=== PATIENT | female | born 1975 | race African-American/Black ===

== ENCOUNTER 2016-08-21 04:46 | Emergency (ER) | payer MEDICAID ==
[~2016-08-21] VITALS: Ht 160 cm; Wt 82.0 kg
[~2016-08-21 04:46] MED LIST: PHENERGAN; PROAIR; ZPACK
[2016-08-21] MEDS ORDERED: SODIUM CHLORIDE 0.9% 1,000 ML IV ONE (06:04)
[2016-08-21] MEDS ORDERED: FAMOTIDINE 20MG/2ML VIAL IV STA (06:04)
[2016-08-21] MEDS ORDERED: ONDANSETRON HCL 4MG/2ML VIAL IV STA (06:04)
[2016-08-21 06:21] LABS: BASOPHILS % 1.4 % (0.0-2.0); EOSINOPHILS % 6.1 % (0.0-5.0); HEMATOCRIT. 39.7 % (36.0-48.0); HEMOGLOBIN. 13.2 g/dL (12.0-16.0); LYMPHOCYTES % 33.6 % (20.0-50.0); MEAN CORPUSCULAR HEMOGLOBIN 30.8 pg (28.0-32.0); MEAN CORPUSCULAR HGB CONC 33.3 g/dL (31.0-37.0); MEAN CORPUSCULAR VOLUME 92.7 fL (81.0-99.0); MEAN PLATELET VOLUME 8.6 fl (7.4-10.4); MONOCYTES % 8.7 % (2.0-8.0); NEUTROPHILS % 50.2 % (40.0-76.0); PLATELET 201 x1000/uL (130-400); RED BLOOD CELL COUNT 4.28 mill/uL (4.2-5.4); RED CELL DISTRIBUTION WIDTH 13.2 % (11.6-14.6); WHITE BLOOD COUNT 7.8 x1000/uL (4.5-11.0)
[2016-08-21 06:27] LABS: CHLORIDE 108 mEq/L (98-107); INDEX HEMOLYSI 1 (1-3); INDEX ICTERIC 1 (1-4); INDEX LIPEMIC 1 (1-3)
[2016-08-21 06:31] LABS: ALBUMIN 3.2 g/dL (3.4-5.0); ANION GAP 10; CALCIUM 8.4 mg/dL (8.5-10.1); CARBON DIOXIDE 27 mEq/L (21-32); ETHANOL BLOOD < 10 mg/dL; LIPASE 150 IU/L (73-393); UREA NITROGEN BLOOD 15 mg/dL (7-21)
[2016-08-21 06:36] LABS: ALANINE AMINOTRANSFERASE 14 IU/L (13-61); eGFR > 60 mL/min (>60)
[2016-08-21 06:38] LABS: NT PRO B-TYPE NATRIURETIC PEP 42 pg/mL (5-125); TROPONIN I < 0.02 ng/mL (0.00-0.04)
[2016-08-21 07:05] LABS: CLARITY URINE CLOUDY (CLEAR); COLOR URINE YELLOW (YELLOW); GLUCOSE URINE NEGATIVE (NEGATIVE); KETONES URINE NEGATIVE (NEGATIVE); LEUKOCYTE ESTERASE URINE NEGATIVE (NEGATIVE); NITRITE URINE NEGATIVE (NEGATIVE); OCCULT BLOOD URINE NEGATIVE (NEGATIVE); PROTEIN URINE NEGATIVE (NEGATIVE); SPECIFIC GRAVITY URINE 1.025 (1.005-1.030)
[2016-08-21 07:07] LABS: BACTERIA URINE NONE SEEN; CALCIUM PHOSPHATE CRYSTALS UR NONE SEEN /lpf; SQUAMOUS EPITHELIAL CELL URINE 1+ /lpf (RARE/1+); WAXY CASTS URINE NONE SEEN /lpf; WBC URINE 0-2 /hpf (0-2); YEAST URINE NONE SEEN
[2016-08-21 07:11] LABS: *AMPHETAMINES SCREEN URINE NEGATIVE (NEGATIVE); *BARBITURATES SCREEN URINE NEGATIVE (NEGATIVE); *BENZODIAZEPINES SCREEN URINE NEGATIVE (NEGATIVE); *COCAINE SCREEN URINE NEGATIVE (NEGATIVE); CANNABINOID URINE SCREEN PRESUMTIVE POSITIVE (NEGATIVE); ECSTASY MDMA SCREEN URINE NEGATIVE (NEGATIVE); METHADONE URINE SCREEN NEGATIVE (NEGATIVE); OPIATES URINE SCREEN PRESUMTIVE POSITIVE (NEGATIVE); PHENCYCLIDINE URINE SCREEN NEGATIVE (NEGATIVE)
[2016-08-21 07:11] LABS: PROTHROMBIN TIME 10.5 sec
[2016-08-21 08:43] VITALS: BP 129/91
[2016-08-21] MEDS ORDERED: IOHEXOL-300 100 ML BOTTLE ONE (13:35)
[2016-08-21] MEDS ORDERED: SODIUM CHLORIDE 0.9% 10ML VIAL ONE (13:35)
== END 2016-08-21 09:46 | disposition home or self-care (01) ==
LOC: ER 04:47
DX: R10.31 Right lower quadrant pain (principal); M19.90 Unspecified osteoarthritis, unspecified site; I10 Essential (primary) hypertension; J45.909 Unspecified asthma, uncomplicated; G43.909 Migraine, unspecified, not intractable, without status migrainosus; F17.201 Nicotine dependence, unspecified, in remission; Z98.890 Other specified postprocedural states; Z88.6 Allergy status to analgesic agent
CPT/HCPCS: 36415; 71010; 74177; 80053; 80305; 81001; 81025; 83690; 83880; 84484; 85025; 85610; 93005; 96361; 96374; 96375; 99285; A4216; G0482; J2405; J3490; J7030; Q9967; Z7610

== ENCOUNTER 2016-11-12 21:05 | Emergency (ER) | payer MEDICAID ==
[~2016-11-12] VITALS: Ht 175.3 cm; Wt 86.0 kg
[~2016-11-12 21:05] MED LIST changes: +IOHEXOL-300 100 ML BOTTLE ONE; +SODIUM CHLORIDE 0.9% 10ML VIAL ONE
[2016-11-12] MEDS ORDERED: ONDANSETRON HCL 4MG/2ML VIAL IV STA (21:45)
[2016-11-12] MEDS ORDERED: SODIUM CHLORIDE 0.9% 1,000 ML IV ONE (21:45)
[2016-11-12] MEDS ORDERED: MORPHINE SULFATE 4 MG/ML CPJ (NOT FOR IM USE) IV STA (21:45)
[2016-11-12] MEDS ORDERED: FAMOTIDINE 20MG/2ML VIAL IV ONE (22:00)
[2016-11-12] MEDS ORDERED: PANTOPRAZOLE SODIUM 40 MG/VIAL IV ONE (22:00)
[2016-11-12 22:43] LABS: BASOPHILS % 0.7 % (0.0-2.0); EOSINOPHILS % 3.6 % (0.0-5.0); HEMATOCRIT. 42.3 % (36.0-48.0); HEMOGLOBIN. 14.2 g/dL (12.0-16.0); LYMPHOCYTES % 19.8 % (20.0-50.0); MEAN CORPUSCULAR HEMOGLOBIN 31.2 pg (28.0-32.0); MEAN CORPUSCULAR VOLUME 92.9 fL (81.0-99.0); MEAN PLATELET VOLUME 9.2 fl (7.4-10.4); MONOCYTES % 8.9 % (2.0-8.0); PLATELET 172 x1000/uL (130-400); RED BLOOD CELL COUNT 4.55 mill/uL (4.2-5.4); RED CELL DISTRIBUTION WIDTH 14.1 % (11.6-14.6)
[2016-11-12 22:50] LABS: HCG SCREEN NEGATIVE; INR 1.1; PROTHROMBIN TIME 11.1 sec
[2016-11-12 22:58] LABS: CARBON DIOXIDE 25 mEq/L (21-32); CHLORIDE 109 mEq/L (98-107)
[2016-11-13 00:39] LABS: CLARITY URINE CLEAR (CLEAR); COLOR URINE YELLOW (YELLOW); GLUCOSE URINE NEGATIVE (NEGATIVE); KETONES URINE NEGATIVE (NEGATIVE); LEUKOCYTE ESTERASE URINE NEGATIVE (NEGATIVE); NITRITE URINE NEGATIVE (NEGATIVE); OCCULT BLOOD URINE NEGATIVE (NEGATIVE); PH URINE 6.5 (4.5-8.0); PROTEIN URINE NEGATIVE (NEGATIVE); SPECIFIC GRAVITY URINE 1.061 (1.005-1.030)
[2016-11-13 01:52] VITALS: BP 114/63
== END 2016-11-13 02:01 | disposition home or self-care (01) ==
LOC: ER 21:47
DX: K29.70 Gastritis, unspecified, without bleeding (principal); I10 Essential (primary) hypertension; F12.10 Cannabis abuse, uncomplicated; F41.9 Anxiety disorder, unspecified; M19.90 Unspecified osteoarthritis, unspecified site; J45.909 Unspecified asthma, uncomplicated; F31.9 Bipolar disorder, unspecified; Z88.6 Allergy status to analgesic agent
CPT/HCPCS: 36415; 74177; 80053; 81003; 83690; 84703; 85025; 85610; 96361; 96374; 96375; 99285; A4216; C9113; J2270; J2405; J3490; J7030; Q9967; Z7610

== ENCOUNTER 2017-06-14 07:07 | Emergency (ER) | payer MEDICAID ==
[~2017-06-14] VITALS: Ht 170.2 cm; Wt 87.0 kg
[~2017-06-14 07:07] MED LIST changes: -IOHEXOL-300 100 ML BOTTLE ONE; -SODIUM CHLORIDE 0.9% 10ML VIAL ONE
[2017-06-14] MEDS ORDERED: METHYLPREDNISOLONE SOD SUCC 125 MG/2 ML VIAL IV STA (09:52)
[2017-06-14] MEDS ORDERED: ALBUTEROL (0.083%) 2.5MG/3ML NEB HHN STA (09:52)
[2017-06-14] MEDS ORDERED: IPRATROPIUM BROMIDE (0.02%) 0.5MG/2.5ML NEB HHN STA (09:52)
[2017-06-14 12:05] VITALS: BP 124/95
== END 2017-06-14 12:05 | disposition home or self-care (01) ==
LOC: ER 07:20
DX: J45.901 Unspecified asthma with (acute) exacerbation (principal); I10 Essential (primary) hypertension; F17.210 Nicotine dependence, cigarettes, uncomplicated; F12.90 Cannabis use, unspecified, uncomplicated; Z88.6 Allergy status to analgesic agent; Z86.59 Personal history of other mental and behavioral disorders; Z98.890 Other specified postprocedural states
CPT/HCPCS: 71045; 94644; 96374; 99285; J2930; J7611

== ENCOUNTER 2017-06-25 20:55 | Emergency (ER) | payer MEDICAID ==
[~2017-06-25] VITALS: Ht 162.6 cm; Wt 86.0 kg
[2017-06-25] MEDS ORDERED: ACETAMINOPHEN WITH CODEINE 300/30MG TABLET PO ONE (23:00)
[2017-06-26 01:05] VITALS: BP 148/88
== END 2017-06-26 01:05 | disposition home or self-care (01) ==
LOC: ER 21:08
DX: S00.03XA Contusion of scalp, initial encounter (principal); M54.2 Cervicalgia; J45.909 Unspecified asthma, uncomplicated; I10 Essential (primary) hypertension; M19.90 Unspecified osteoarthritis, unspecified site; F17.200 Nicotine dependence, unspecified, uncomplicated; Z88.6 Allergy status to analgesic agent; Y04.0XXA Assault by unarmed brawl or fight, initial encounter; Y93.89 Activity, other specified; Y92.89 Other specified places as the place of occurrence of the external cause; Y99.8 Other external cause status
CPT/HCPCS: 70450; 70486; 72125; 81025; 99284

== ENCOUNTER 2017-09-26 04:42 | Emergency (ER) | payer MEDICAID ==
[~2017-09-26] VITALS: Ht 170.2 cm; Wt 82.0 kg
[2017-09-26] MEDS ORDERED: ALBUTEROL (0.083%) 2.5MG/3ML NEB HHN STA (06:22)
[2017-09-26] MEDS ORDERED: PREDNISONE 20MG TABLET PO STA (06:22)
[2017-09-26] MEDS ORDERED: ACETAMINOPHEN 325MG TABLET PO ONE (06:30)
[2017-09-26] MEDS ORDERED: ONDANSETRON HCL 4MG TABLET PO ONE (06:30)
[2017-09-26] MEDS: IPRATROPIUM BROMIDE (0.02%) 0.5MG/2.5ML NEB HHN STA ×2 (06:56→06:59)
[2017-09-26 10:04] VITALS: BP 104/67
== END 2017-09-26 10:05 | disposition home or self-care (01) ==
LOC: ER 04:42
DX: J45.901 Unspecified asthma with (acute) exacerbation (principal); B34.9 Viral infection, unspecified; I10 Essential (primary) hypertension; F12.10 Cannabis abuse, uncomplicated; F17.210 Nicotine dependence, cigarettes, uncomplicated; Z71.6 Tobacco abuse counseling; Z88.6 Allergy status to analgesic agent; Z98.1 Arthrodesis status
CPT/HCPCS: 71045; 94640; 99284; 99406; J7512; J7611; Q0162

== ENCOUNTER 2019-02-22 06:23 | Emergency (ER) | payer MEDICAID ==
[~2019-02-22] VITALS: Ht 170.2 cm; Wt 80.0 kg
[2019-02-22] MEDS ORDERED: MORPHINE SULFATE 4 MG/ML CPJ (NOT FOR IM USE) IV STA (07:10)
[2019-02-22] MEDS ORDERED: SODIUM CHLORIDE 0.9% 1,000 ML IV ONE (07:10)
[2019-02-22 08:13] LABS: BASOPHILS % 0.6 % (0.0-2.0); EOSINOPHILS % 4.3 % (0.0-5.0); HEMATOCRIT. 38.7 % (36.0-48.0); LYMPHOCYTES % 32.1 % (20.0-50.0); MEAN CORPUSCULAR HEMOGLOBIN 31.3 pg (28.0-32.0); MEAN CORPUSCULAR VOLUME 93.5 fL (81.0-99.0); MEAN PLATELET VOLUME 9.3 fl (7.4-10.4); MONOCYTES % 9.3 % (2.0-8.0); NEUTROPHILS % 53.7 % (40.0-76.0); PLATELET 209 x1000/uL (130-400); RED BLOOD CELL COUNT 4.14 mill/uL (4.2-5.4); RED CELL DISTRIBUTION WIDTH 13.6 % (11.6-14.6)
[2019-02-22 08:20] LABS: PROTHROMBIN TIME 10.7 sec (9.6-11.0)
[2019-02-22 08:24] LABS: CHLORIDE 110 mEq/L (98-107)
[2019-02-22 08:38] LABS: CLARITY URINE CLOUDY (CLEAR); COLOR URINE YELLOW (YELLOW); KETONES URINE NEGATIVE (NEGATIVE); LEUKOCYTE ESTERASE URINE NEGATIVE (NEGATIVE); NITRITE URINE NEGATIVE (NEGATIVE); OCCULT BLOOD URINE 3+ (NEGATIVE); PH URINE 6.5 (4.5-8.0); PROTEIN URINE NEGATIVE (NEGATIVE); SPECIFIC GRAVITY URINE 1.022 (1.005-1.030)
[2019-02-22] MEDS ORDERED: ONDANSETRON HCL 4MG/2ML INJ IV NR (09:30)
[2019-02-22 12:15] VITALS: BP 136/69
== END 2019-02-22 12:19 | disposition home or self-care (01) ==
LOC: ER 06:23
DX: R10.0 Acute abdomen (principal); I10 Essential (primary) hypertension; F17.210 Nicotine dependence, cigarettes, uncomplicated; F12.90 Cannabis use, unspecified, uncomplicated
CPT/HCPCS: 36415; 74176; 76830; 76856; 80053; 81003; 81025; 83690; 85025; 85610; 96361; 96374; 96375; 99284; J2270; J2405; J7030

== ENCOUNTER 2019-12-10 19:59 | Emergency (ER) | payer MEDICAID ==
[~2019-12-10] VITALS: Ht 162.6 cm; Wt 73.0 kg
[2019-12-10] MEDS ORDERED: FLUORESCEIN SODIUM 1MG/STRIP RIGHTEYE ONE (20:30)
[2019-12-10] MEDS ORDERED: IBUPROFEN 600MG TABLET PO ONE (20:30)
[2019-12-10] MEDS ORDERED: TETRACAINE 0.5% OPHTH DROPS 4ML RIGHTEYE ONE (20:30)
[2019-12-10 21:47] VITALS: BP 164/100
== END 2019-12-10 21:49 | disposition home or self-care (01) ==
LOC: ER 19:59
DX: S05.01XA Injury of conjunctiva and corneal abrasion without foreign body, right eye, initial encounter (principal); X58.XXXA Exposure to other specified factors, initial encounter; Y93.89 Activity, other specified; Y92.89 Other specified places as the place of occurrence of the external cause; Y99.8 Other external cause status; J45.909 Unspecified asthma, uncomplicated; F12.10 Cannabis abuse, uncomplicated; Z88.6 Allergy status to analgesic agent
CPT/HCPCS: 99283

== ENCOUNTER 2021-11-06 11:07 | Emergency (ER) | payer MEDICAID ==
[~2021-11-06] VITALS: Ht 167.6 cm; Wt 91.0 kg
[2021-11-06 11:12] VITALS: BP 132/94
[2021-11-06] MEDS ORDERED: CEFAZOLIN 1000MG PREMIX 50 ML IV ONE (15:00)
[2021-11-06] MEDS ORDERED: CEFAZOLIN 1000MG PREMIX 50 ML IV NR (15:15)
[2021-11-06 15:54] LABS: BASOPHILS % 0.5 % (0.0-2.0); EOSINOPHILS % 2.7 % (0.0-5.0); HEMATOCRIT. 44.4 % (36.0-48.0); HEMOGLOBIN. 15.6 g/dL (12.0-16.0); LYMPHOCYTES % 22.4 % (20.0-50.0); MEAN CORPUSCULAR HEMOGLOBIN 32.1 pg (28.0-32.0); MEAN CORPUSCULAR VOLUME 91.6 fL (81.0-99.0); MEAN PLATELET VOLUME 9.3 fl (7.4-10.4); MONOCYTES % 6.9 % (2.0-8.0); NEUTROPHILS % 67.5 % (40.0-76.0); PLATELET 195 x1000/uL (130-400); RED BLOOD CELL COUNT 4.85 mill/uL (4.2-5.4); RED CELL DISTRIBUTION WIDTH 15.4 % (11.6-14.6)
[2021-11-06 16:10] LABS: CHLORIDE 106 mEq/L (98-107)
[2021-11-06 16:11] LABS: HCG SCREEN NEGATIVE
[2021-11-06] MEDS ORDERED: IOHEXOL-300 100 ML BOTTLE ONE (17:37)
[2021-11-06] MEDS ORDERED: CEPH500C2 MT (18:43)
== END 2021-11-06 19:02 | disposition home or self-care (01) ==
LOC: ER 11:07
DX: L03.213 Periorbital cellulitis (principal); R21 Rash and other nonspecific skin eruption; I10 Essential (primary) hypertension; J45.909 Unspecified asthma, uncomplicated
CPT/HCPCS: 36415; 70487; 80053; 84703; 85025; 96365; 99285; J0690; Q9967

== ENCOUNTER 2023-07-25 02:04 | Emergency (ER) | payer MEDICAID, OTHER ==
[~2023-07-25] VITALS: Ht 167.6 cm; Wt 77.5 kg
[~2023-07-25 02:04] MED LIST changes: +CEPH500C2 MT
[2023-07-25 02:05] VITALS: O2SAT 96
[2023-07-25 03:16] LABS: BASOPHILS % 1.3 % (0.0-2.0); EOSINOPHILS % 3.7 % (0.0-5.0); HEMATOCRIT. 40.3 % (36.0-48.0); HEMOGLOBIN. 13.7 g/dL (12.0-16.0); LYMPHOCYTES % 27.8 % (20.0-50.0); MEAN CORPUSCULAR HEMOGLOBIN 31.8 pg (28.0-32.0); MEAN CORPUSCULAR HGB CONC 34.1 g/dL (31.0-37.0); MEAN CORPUSCULAR VOLUME 93.4 fL (81.0-99.0); MEAN PLATELET VOLUME 9.3 fl (7.4-10.4); MONOCYTES % 7.3 % (2.0-8.0); NEUTROPHILS % 59.9 % (40.0-76.0); PLATELET 278 x1000/uL (130-400); RED BLOOD CELL COUNT 4.32 mill/uL (4.2-5.4); RED CELL DISTRIBUTION WIDTH 14.5 % (11.6-14.6); WHITE BLOOD COUNT 10.6 x1000/uL (4.5-11.0)
[2023-07-25] MEDS: SODIUM CHLORIDE 0.9% 1,000 ML IV ONE (03:18)
[2023-07-25] MEDS: ONDANSETRON HCL 4MG/2ML INJ IV STA (03:18)
[2023-07-25] MEDS: KETOROLAC 30MG/ML VIAL IV STA (03:18)
[2023-07-25 03:22] LABS: HCG SCREEN NEGATIVE
[2023-07-25 03:27] LABS: ALANINE AMINOTRANSFERASE < 7 IU/L (10-49); ALBUMIN 4.6 g/dL (3.2-4.8); ASPARTATE AMINOTRANSFERASE 12 IU/L (<34); BILIRUBIN TOTAL 0.5 mg/dL (0.1-1.0); CARBON DIOXIDE 25 mEq/L (21-32); CHLORIDE 106 mEq/L (98-107); CREATININE 0.7 mg/dL (0.6-1.0); GLUCOSE 98 mg/dL (70-105); POTASSIUM 3.6 mEq/L (3.5-5.1); PROTEIN TOTAL 7.3 g/dL (6.0-8.3); SODIUM 137 mEq/L (136-145); UREA NITROGEN BLOOD 11 mg/dL (9-23)
[2023-07-25 05:44] LABS: CLARITY URINE CLEAR (CLEAR); COLOR URINE YELLOW (YELLOW); GLUCOSE URINE NEGATIVE (NEGATIVE); KETONES URINE NEGATIVE (NEGATIVE); LEUKOCYTE ESTERASE URINE 1+ (NEGATIVE); NITRITE URINE NEGATIVE (NEGATIVE); OCCULT BLOOD URINE 1+ (NEGATIVE); PROTEIN URINE NEGATIVE (NEGATIVE); SPECIFIC GRAVITY URINE 1.022 (1.005-1.030); UROBILINOGEN URINE 0.2 E.U./dL (0.2-1.0)
[2023-07-25] MEDS ORDERED: NITR-87 MT (05:47)
[2023-07-25] MEDS ORDERED: IBUP-2028 MT (05:47)
[2023-07-25 06:24] VITALS: BP 126/86; PULSE 80; RESP 18; TEMP 98.4
[2023-07-25 07:22] LABS: SQUAMOUS EPITHELIAL CELL URINE FEW /lpf (RARE/1+)
[2023-07-25 07:31] LABS: BACTERIA URINE 1+; RBC URINE 0-2 /hpf (0-2)
== END 2023-07-25 07:03 | disposition home or self-care (01) ==
LOC: ER 02:04
DX: R10.2 Pelvic and perineal pain (principal); R10.31 Right lower quadrant pain; N39.0 Urinary tract infection, site not specified; J45.909 Unspecified asthma, uncomplicated; I10 Essential (primary) hypertension; G43.909 Migraine, unspecified, not intractable, without status migrainosus; Z79.899 Other long term (current) drug therapy
CPT/HCPCS: 99285; 74176; 96374; 96361; 96375; 80053; 81003; 84703; 83605; 83690; 85025; 87086; 87186; 36415; J1885; J2405

== ENCOUNTER 2023-10-19 00:52 | Emergency (ER) | payer OTHER ==
[~2023-10-19] VITALS: Ht 152.4 cm; Wt 80.0 kg
[~2023-10-19 00:52] MED LIST changes: +IBUP-2028 MT; +NITR-87 MT
[2023-10-19 00:55] VITALS: O2SAT 96
[2023-10-19] MEDS ORDERED: OCUFLX EACHEYE (02:20)
[2023-10-19] MEDS: KETOROLAC 15MG/ML VIAL IM ONE (02:23)
[2023-10-19 02:47] VITALS: BP 145/69; PULSE 79; RESP 18; TEMP 97.8
[2023-10-19] MEDS ORDERED: CLIN-194 MT (02:49)
== END 2023-10-19 02:52 | disposition home or self-care (01) ==
LOC: ER 00:52
DX: L03.213 Periorbital cellulitis (principal); J45.909 Unspecified asthma, uncomplicated; I10 Essential (primary) hypertension; G43.909 Migraine, unspecified, not intractable, without status migrainosus; F19.90 Other psychoactive substance use, unspecified, uncomplicated; Z88.8 Allergy status to other drugs, medicaments and biological substances
CPT/HCPCS: 99283; 96372; J1885

== ENCOUNTER 2023-11-29 16:32 | Emergency (ER) | payer OTHER ==
[~2023-11-29] VITALS: Ht 165.1 cm; Wt 82.0 kg
[~2023-11-29 16:32] MED LIST changes: +CLIN-194 MT; +OCUFLX EACHEYE
[2023-11-29 16:47] VITALS: O2SAT 99
[2023-11-29] MEDS ORDERED: TETRACAINE 0.5% OPHTH DROPS 4ML BOTHEYE ONE (17:00)
[2023-11-29] MEDS: TETRACAINE 0.5% OPHTH DROPS 4ML BOTHEYE NR (20:41)
[2023-11-29] MEDS: FLUORESCEIN SODIUM 1MG/STRIP RIGHTEYE ONE (20:41)
[2023-11-29] MEDS ORDERED: DORZOLAMIDE 2% OPHTH 10 ML BOTTLE RIGHTEYE SCH (21:30)
[2023-11-29] MEDS ORDERED: TIMOLOL MALEATE 0.5% OPHTH DROPS 5ML RIGHTEYE SCH (21:30)
[2023-11-29] MEDS ORDERED: ACETAZOLAMIDE 500MG ER CAPSULE PO ONE (21:30)
[2023-11-29] MEDS ORDERED: LATANOPROST 0.005% OPHTH DROPS 2.5ML RIGHTEYE SCH (21:45)
[2023-11-30] VITALS: BP 129/87; PULSE 92; RESP 19; TEMP 98.1
[2023-11-30] MEDS ORDERED: PREDNISOLONE ACETATE 1% OPHTH DROPS 5ML RIGHTEYE SCH
[2023-11-30] MEDS: KETOROLAC 30MG/ML VIAL IM ONE
[2023-11-30] MEDS: HYDROCODONE/ACETAMINOPHEN 5/325MG TABLET PO ONE
[2023-11-30] MEDS ORDERED: CIPROFLOXACIN 0.3% OPHTH SOLN 2.5ML RIGHTEYE SCH (09:00)
== END 2023-11-30 00:30 | disposition short-term general hospital (02) ==
LOC: ER 16:32
DX: H10.9 Unspecified conjunctivitis (principal); J45.909 Unspecified asthma, uncomplicated; I10 Essential (primary) hypertension; G43.909 Migraine, unspecified, not intractable, without status migrainosus; Z79.899 Other long term (current) drug therapy
CPT/HCPCS: 99291; 96372; J1885

== ENCOUNTER 2023-12-04 10:24 | Emergency (ER) | payer OTHER ==
[~2023-12-04] VITALS: Ht 177.8 cm; Wt 81.0 kg
[2023-12-04 10:57] VITALS: PULSE 70; RESP 14; O2SAT 100
[2023-12-04] MEDS: ALBUTEROL (0.083%) 2.5MG/3ML NEB HHN STA (10:57)
[2023-12-04] MEDS: IPRATROPIUM BROMIDE (0.02%) 0.5MG/2.5ML NEB HHN STA (10:57)
[2023-12-04] MEDS: ASPIRIN 81MG TABLET PO ONE (11:02)
[2023-12-04 11:32] LABS: BASOPHILS % 1.1 % (0.0-2.0); EOSINOPHILS % 4.7 % (0.0-5.0); HEMATOCRIT. 39.7 % (36.0-48.0); HEMOGLOBIN. 13.3 g/dL (12.0-16.0); LYMPHOCYTES % 27.3 % (20.0-50.0); MEAN CORPUSCULAR HGB CONC 33.5 g/dL (31.0-37.0); MEAN CORPUSCULAR VOLUME 92.7 fL (81.0-99.0); MEAN PLATELET VOLUME 9.2 fl (7.4-10.4); MONOCYTES % 9.6 % (2.0-8.0); NEUTROPHILS % 57.3 % (40.0-76.0); PLATELET 210 x1000/uL (130-400); RED BLOOD CELL COUNT 4.29 mill/uL (4.2-5.4); RED CELL DISTRIBUTION WIDTH 14.1 % (11.6-14.6); WHITE BLOOD COUNT 6.7 x1000/uL (4.5-11.0)
[2023-12-04 11:38] LABS: CHLORIDE 108 mEq/L (98-107); POTASSIUM 3.8 mEq/L (3.5-5.1); SODIUM 139 mEq/L (136-145)
[2023-12-04 11:39] LABS: CARBON DIOXIDE 26 mEq/L (21-32)
[2023-12-04 11:40] LABS: CALCIUM 9.3 mg/dL (8.7-10.4)
[2023-12-04 11:43] LABS: INR 0.9; PROTHROMBIN TIME 10.6 sec (9.6-11.0)
[2023-12-04 11:44] LABS: CREATININE 0.8 mg/dL (0.6-1.0); GLUCOSE 86 mg/dL (70-105)
[2023-12-04 11:45] LABS: UREA NITROGEN BLOOD 21 mg/dL (9-23)
[2023-12-04 11:56] LABS: TROPONIN I HIGH SENSITIVITY < 4 ng/L (3.0-34)
[2023-12-04 13:34] VITALS: BP 119/88; PULSE 91; RESP 10; TEMP 97.9
[2023-12-04 13:48] LABS: TROPONIN I HIGH SENSITIVITY < 4 ng/L (3.0-34)
== END 2023-12-04 14:08 | disposition short-term general hospital (02) ==
LOC: ER 10:24 → EDBEDREQTM 12:24 → EDBEDREQ 12:24 → CANBEDREQ 14:07 → ER 14:08
DX: R07.9 Chest pain, unspecified (principal); J45.909 Unspecified asthma, uncomplicated; I10 Essential (primary) hypertension; G43.909 Migraine, unspecified, not intractable, without status migrainosus; F19.90 Other psychoactive substance use, unspecified, uncomplicated; Z88.8 Allergy status to other drugs, medicaments and biological substances
CPT/HCPCS: 80048; 83880; 83690; 85025; 85610; 84484; 36415; 71045; 94640; 93005; 99285; Z7610 ×4

== ENCOUNTER 2024-02-14 09:08 | Emergency (ER) | payer OTHER ==
[~2024-02-14] VITALS: Ht 167.6 cm; Wt 60.0 kg
[2024-02-14 09:11] VITALS: O2SAT 99
[2024-02-14] MEDS ORDERED: HYDROCODONE/ACETAMINOPHEN 5/325MG TABLET PO STA (09:22)
[2024-02-14 09:56] LABS: BASOPHILS % 1.3 % (0.0-2.0); EOSINOPHILS % 4.3 % (0.0-5.0); HEMATOCRIT. 39.6 % (36.0-48.0); HEMOGLOBIN. 13.5 g/dL (12.0-16.0); LYMPHOCYTES % 35.6 % (20.0-50.0); MEAN CORPUSCULAR HEMOGLOBIN 31.8 pg (28.0-32.0); MEAN CORPUSCULAR VOLUME 93.7 fL (81.0-99.0); MEAN PLATELET VOLUME 8.9 fl (7.4-10.4); MONOCYTES % 8.2 % (2.0-8.0); NEUTROPHILS % 50.6 % (40.0-76.0); PLATELET 209 x1000/uL (130-400); RED BLOOD CELL COUNT 4.23 mill/uL (4.2-5.4); WHITE BLOOD COUNT 6.4 x1000/uL (4.5-11.0)
[2024-02-14 09:57] LABS: CHLORIDE 111 mEq/L (98-107); POTASSIUM 3.9 mEq/L (3.5-5.1); SODIUM 142 mEq/L (136-145)
[2024-02-14 09:59] LABS: CALCIUM 9.4 mg/dL (8.7-10.4); CARBON DIOXIDE 26 mEq/L (21-32)
[2024-02-14 10:04] LABS: CREATININE 0.7 mg/dL (0.6-1.0); GLUCOSE 96 mg/dL (70-105); UREA NITROGEN BLOOD 10 mg/dL (9-23)
[2024-02-14 10:05] LABS: ALANINE AMINOTRANSFERASE 7 IU/L (10-49); ASPARTATE AMINOTRANSFERASE 13 IU/L (<34)
[2024-02-14 10:06] LABS: BILIRUBIN DIRECT 0.1 mg/dL (<=3.0); BILIRUBIN TOTAL 0.4 mg/dL (0.1-1.0); PROTEIN TOTAL 6.6 g/dL (6.0-8.3)
[2024-02-14 10:08] LABS: TROPONIN I HIGH SENSITIVITY < 4 ng/L (3.0-34)
[2024-02-14] MEDS: HYDROCODONE/ACETAMINOPHEN 5/325MG TABLET PO NR (11:13)
[2024-02-14] MEDS ORDERED: IBUP-2029 MT (13:31)
[2024-02-14] MEDS ORDERED: ONDA4TAB50 MT (13:31)
[2024-02-14 14:32] VITALS: BP 143/90; PULSE 86; RESP 14; TEMP 36.50292; O2SAT 99
== END 2024-02-14 14:32 | disposition home or self-care (01) ==
LOC: ER 09:08
DX: R10.11 Right upper quadrant pain (principal); R07.9 Chest pain, unspecified; J45.909 Unspecified asthma, uncomplicated; I10 Essential (primary) hypertension; F19.90 Other psychoactive substance use, unspecified, uncomplicated; Z79.899 Other long term (current) drug therapy; Z88.8 Allergy status to other drugs, medicaments and biological substances
CPT/HCPCS: 80076; 80048; 83690; 85025; 84484; 36415; 71045; 74176; 93005; 99285; Z7610 ×3

== ENCOUNTER 2025-03-18 09:16 | Emergency (ER) | payer OTHER ==
[~2025-03-18] VITALS: Ht 162.6 cm; Wt 84.0 kg
[~2025-03-18 09:16] MED LIST changes: +IBUP-1455 MT; +ONDA4TAB50 MT
[2025-03-18 09:18] VITALS: O2SAT 99
[2025-03-18 09:46] LABS: BASOPHILS % 1.2 % (0.0-2.0); EOSINOPHILS % 4.4 % (0.0-5.0); HEMATOCRIT. 43.4 % (36.0-48.0); HEMOGLOBIN. 14.7 g/dL (12.0-16.0); LYMPHOCYTES % 38.1 % (20.0-50.0); MEAN PLATELET VOLUME 8.7 fl (7.4-10.4); MONOCYTES % 9.0 % (2.0-8.0); NEUTROPHILS % 47.3 % (40.0-76.0); PLATELET 203 x1000/uL (130-400); RED BLOOD CELL COUNT 4.66 mill/uL (4.2-5.4); RED CELL DISTRIBUTION WIDTH 14.2 % (11.6-14.6)
[2025-03-18] MEDS: HYDROCODONE/ACETAMINOPHEN 5/325MG TABLET PO ONE (09:54)
[2025-03-18] MEDS: KETOROLAC 15MG/ML VIAL IM ONE (09:55)
[2025-03-18 10:13] LABS: CREATININE 0.7 mg/dL (0.6-1.0); UREA NITROGEN BLOOD 8 mg/dL (9-23)
[2025-03-18 10:14] LABS: TROPONIN I HIGH SENSITIVITY < 4 ng/L (3.0-34)
[2025-03-18 10:39] VITALS: BP 121/84; PULSE 72; RESP 16; TEMP 36.7; O2SAT 98
== END 2025-03-18 10:41 | disposition home or self-care (01) ==
LOC: ER 09:24
DX: M54.2 Cervicalgia (principal); I10 Essential (primary) hypertension; J45.909 Unspecified asthma, uncomplicated
CPT/HCPCS: 80048; 85025; 84484; 36415; 71045; 93005; 96372; 99285; J1885; Z7610

== ENCOUNTER 2025-04-14 03:07 | Emergency (ER) | payer OTHER ==
[~2025-04-14] VITALS: Ht 157.5 cm; Wt 82.0 kg
[2025-04-14 03:14] VITALS: TEMP 36.7; O2SAT 100
[2025-04-14] MEDS: HYDROCODONE/ACETAMINOPHEN 5/325MG TABLET PO ONE (04:39)
[2025-04-14 05:15] LABS: BASOPHILS % 0.9 % (0.0-2.0); EOSINOPHILS % 4.0 % (0.0-5.0); HEMATOCRIT. 43.8 % (36.0-48.0); HEMOGLOBIN. 14.4 g/dL (12.0-16.0); LYMPHOCYTES % 34.7 % (20.0-50.0); MEAN PLATELET VOLUME 8.9 fl (7.4-10.4); MONOCYTES % 8.3 % (2.0-8.0); NEUTROPHILS % 52.1 % (40.0-76.0); PLATELET 177 x1000/uL (130-400); RED BLOOD CELL COUNT 4.66 mill/uL (4.2-5.4); RED CELL DISTRIBUTION WIDTH 14.3 % (11.6-14.6)
[2025-04-14 05:28] LABS: CREATININE 0.7 mg/dL (0.6-1.0)
[2025-04-14 05:29] LABS: UREA NITROGEN BLOOD 12 mg/dL (9-23)
[2025-04-14 05:31] LABS: TROPONIN I HIGH SENSITIVITY < 4 ng/L (3.0-34)
[2025-04-14] MEDS ORDERED: CYCL10TA21 MT (05:46)
[2025-04-14] MEDS ORDERED: NAPR-1176 MT (05:46)
[2025-04-14] MEDS: POTASSIUM CHLORIDE 20MEQ/PACKET PO ONE (06:29)
[2025-04-14 06:32] VITALS: BP 129/90; PULSE 100; RESP 18; O2SAT 100
[2025-04-14 06:49] LABS: *AMPHETAMINES SCREEN URINE NEGATIVE (NEGATIVE); *BARBITURATES SCREEN URINE NEGATIVE (NEGATIVE); *BENZODIAZEPINES SCREEN URINE NEGATIVE (NEGATIVE)
[2025-04-14 06:50] LABS: *COCAINE SCREEN URINE PRESUMPTIVE POSITIVE (NEGATIVE); CANNABINOID URINE SCREEN PRESUMPTIVE POSITIVE (NEGATIVE); ECSTASY MDMA SCREEN URINE NEGATIVE (NEGATIVE); METHADONE URINE SCREEN NEGATIVE (NEGATIVE); OPIATES URINE SCREEN NEGATIVE (NEGATIVE); PHENCYCLIDINE URINE SCREEN NEGATIVE (NEGATIVE)
[2025-04-14 07:14] LABS: CLARITY URINE CLOUDY (CLEAR); COLOR URINE YELLOW (YELLOW); PH URINE 5.5 (4.5-8.0); SPECIFIC GRAVITY URINE 1.025 (1.005-1.030)
[2025-04-14 07:15] LABS: GLUCOSE URINE NEGATIVE (NEGATIVE); KETONES URINE NEGATIVE (NEGATIVE); NITRITE URINE NEGATIVE (NEGATIVE); OCCULT BLOOD URINE TRACE (NEGATIVE); PROTEIN URINE NEGATIVE (NEGATIVE)
[2025-04-14 07:16] LABS: LEUKOCYTE ESTERASE URINE 3+ (NEGATIVE); UROBILINOGEN URINE 1.0 E.U./dL (0.2-1.0)
[2025-04-14 07:25] LABS: SQUAMOUS EPITHELIAL CELL URINE 3+ /lpf (RARE/1+)
[2025-04-14 07:29] LABS: WBC URINE 15-25 /hpf (0-2)
[2025-04-14 07:30] LABS: BACTERIA URINE 1+; RBC URINE 0-2 /hpf (0-2)
== END 2025-04-14 06:36 | disposition home or self-care (01) ==
LOC: ER 03:07
DX: R07.2 Precordial pain (principal); M54.2 Cervicalgia; M79.671 Pain in right foot; M54.9 Dorsalgia, unspecified; I10 Essential (primary) hypertension; J45.909 Unspecified asthma, uncomplicated; R06.02 Shortness of breath; Z87.891 Personal history of nicotine dependence; Z79.899 Other long term (current) drug therapy
CPT/HCPCS: 36415; 71045; 72131; 73630; 80048; 80305; 80320; 81003; 83880; 84484; 85025; 93005; 99285; G0480